=== PATIENT | male | born 1955 | race African-American/Black ===

== ENCOUNTER 2016-12-19 17:31 | Inpatient (IN) | payer OTHER, MEDICAID ==
[~2016-12-19] VITALS: Ht 182.9 cm; Wt 74.8 kg
[2016-12-19] MEDS ORDERED: ONDANSETRON HCL 4MG/2ML VIAL IV STA (18:15)
[2016-12-19] MEDS ORDERED: MORPHINE SULFATE 4 MG/ML CPJ (NOT FOR IM USE) IV STA (18:15)
[2016-12-19] MEDS ORDERED: SODIUM CHLORIDE 0.9% 1,000 ML IV ONE (18:15)
[2016-12-19 19:14] LABS: BASOPHILS % 0.4 % (0.0-2.0); HEMATOCRIT. 51.2 % (42.0-52.0); HEMOGLOBIN. 16.7 g/dL (14.0-18.0); LYMPHOCYTES % 17.6 % (20.0-50.0); MEAN CORPUSCULAR HEMOGLOBIN 24.5 pg (28.0-32.0); MEAN CORPUSCULAR VOLUME 75.2 fL (80.0-94.0); MEAN PLATELET VOLUME 8.3 fl (7.4-10.4); MONOCYTES % 13.3 % (2.0-8.0); NEUTROPHILS % 68.7 % (40.0-76.0); PLATELET 426 x1000/uL (130-400); RED BLOOD CELL COUNT 6.81 mill/uL (4.7-6.1)
[2016-12-19 19:21] LABS: INR 1.1; PROTHROMBIN TIME 11.8 sec (9.4-11.6)
[2016-12-19 19:25] LABS: CARBON DIOXIDE 30 mEq/L (21-32); CHLORIDE 93 mEq/L (98-107); ETHANOL BLOOD < 10 mg/dL
[2016-12-19 19:30] LABS: TROPONIN I 0.02 ng/mL (0.00-0.04)
[2016-12-19] MEDS ORDERED: MORPHINE SULFATE 2 MG/ML CPJ (NOT FOR IM USE) IV NR (19:45)
[2016-12-19] MEDS ORDERED: LEVOFLOXACIN 750MG PREMIX 150 ML IV ONE (21:15)
[2016-12-20] MEDS ORDERED: SODIUM CHLORIDE 0.9% 1,000 ML IV ONE (01:04)
[2016-12-20] MEDS ORDERED: MORPHINE SULFATE 4 MG/ML CPJ (NOT FOR IM USE) IV ONE (01:15)
[2016-12-20] MEDS ORDERED: ONDANSETRON HCL 4MG/2ML VIAL IV ONE (01:15)
[2016-12-20] MEDS ORDERED: MORPHINE SULFATE 2 MG/ML CPJ (NOT FOR IM USE) IV ONE (01:33)
[2016-12-20 04:00] VITALS: BP_SYST 138; BP_SYST 162; BP_DIAS 87; BP_DIAS 97
[2016-12-20 06:39] VITALS: BP 121/66
[2016-12-20 07:57] VITALS: BP 109/78
[2016-12-20] MEDS: AMLODIPINE 10MG TABLET PO SCH (09:00)
[2016-12-20 10:08] LABS: BASOPHILS % 0.6 % (0.0-2.0); EOSINOPHILS % 0.2 % (0.0-5.0); HEMATOCRIT. 45.5 % (42.0-52.0); HEMOGLOBIN. 14.6 g/dL (14.0-18.0); LYMPHOCYTES % 19.5 % (20.0-50.0); MEAN CORPUSCULAR HEMOGLOBIN 24.7 pg (28.0-32.0); MEAN CORPUSCULAR VOLUME 76.9 fL (80.0-94.0); MEAN PLATELET VOLUME 8.4 fl (7.4-10.4); NEUTROPHILS % 65.7 % (40.0-76.0); PLATELET 373 x1000/uL (130-400); RED BLOOD CELL COUNT 5.92 mill/uL (4.7-6.1); RED CELL DISTRIBUTION WIDTH 18.2 % (11.6-14.6)
[2016-12-20 10:28] LABS: TROPONIN I 0.03 ng/mL (0.00-0.04)
[2016-12-20 12:00] VITALS: BP 124/74
[2016-12-20] MEDS ORDERED: POTASSIUM CHLORIDE 20MEQ TABLET SR PO NR (15:00)
[2016-12-20] MEDS: DEXT 5%/0.9% NACL 1,000 ML IV SCH (15:21)
[2016-12-20 16:00] VITALS: BP 126/89
[2016-12-20] MEDS ORDERED: ONDANSETRON HCL 4MG/2ML VIAL IV PRN (18:30)
[2016-12-20] MEDS ORDERED: DEXTROSE 50% WATER 50ML SYRINGE IV PRN (18:45)
[2016-12-20 20:00] VITALS: BP 135/90
[2016-12-20 20:05] LABS: EOSINOPHILS % 0.3 % (0.0-5.0); HEMOGLOBIN. 14.8 g/dL (14.0-18.0); LYMPHOCYTES % 26.4 % (20.0-50.0); MEAN CORPUSCULAR VOLUME 77.3 fL (80.0-94.0); MEAN PLATELET VOLUME 8.6 fl (7.4-10.4); NEUTROPHILS % 59.3 % (40.0-76.0); PLATELET 374 x1000/uL (130-400); RED BLOOD CELL COUNT 5.95 mill/uL (4.7-6.1); RED CELL DISTRIBUTION WIDTH 18.4 % (11.6-14.6)
[2016-12-20 20:17] LABS: CARBON DIOXIDE 30 mEq/L (21-32); CHLORIDE 98 mEq/L (98-107)
[2016-12-20] MEDS: FAMOTIDINE 20MG/2ML VIAL IV SCH (20:19)
[2016-12-20] MEDS: BLOOD SUGAR DIAGNOSTIC STRIP TEST SCH (20:24)
[2016-12-20] MEDS: INSULIN LISPRO 100 UNITS/ML SUBCUT SCH ×2 (20:46→20:51)
[2016-12-21] VITALS (7 sets, daily range): BP systolic 121–150; BP diastolic 70–85
[2016-12-21] MEDS ORDERED: METOCLOPRAMIDE HCL 10MG/2ML VIAL IV SCH
[2016-12-21] MEDS: DEXT 5%/0.9% NACL 1,000 ML IV SCH ×2 (03:34→18:33)
[2016-12-21] MEDS: BLOOD SUGAR DIAGNOSTIC STRIP TEST SCH ×4 (05:44→21:25)
[2016-12-21] MEDS: INSULIN LISPRO 100 UNITS/ML SUBCUT SCH ×4 (06:41→21:00)
[2016-12-21 07:52] LABS: GLUCOSE URINE NEGATIVE (NEGATIVE); KETONES URINE 1+ (NEGATIVE); LEUKOCYTE ESTERASE URINE NEGATIVE (NEGATIVE); NITRITE URINE NEGATIVE (NEGATIVE); OCCULT BLOOD URINE NEGATIVE (NEGATIVE); PH URINE 7.5 (4.5-8.0); PROTEIN URINE 1+ (NEGATIVE); SPECIFIC GRAVITY URINE 1.028 (1.005-1.030)
[2016-12-21 08:00] LABS: CLARITY URINE CLEAR (CLEAR); COLOR URINE DARK YELLOW (YELLOW)
[2016-12-21] MEDS: AMLODIPINE 10MG TABLET PO SCH (08:15)
[2016-12-21] MEDS: MORPHINE SULFATE 2 MG/ML CPJ (NOT FOR IM USE) IV PRN ×2 (08:23→14:08)
[2016-12-21 08:25] LABS: *AMPHETAMINES SCREEN URINE NEGATIVE (NEGATIVE); *BARBITURATES SCREEN URINE NEGATIVE (NEGATIVE); *BENZODIAZEPINES SCREEN URINE NEGATIVE (NEGATIVE); *COCAINE SCREEN URINE PRESUMTIVE POSITIVE (NEGATIVE); CANNABINOID URINE SCREEN PRESUMTIVE POSITIVE (NEGATIVE); METHADONE URINE SCREEN NEGATIVE (NEGATIVE); OPIATES URINE SCREEN PRESUMTIVE POSITIVE (NEGATIVE); PHENCYCLIDINE URINE SCREEN NEGATIVE (NEGATIVE)
[2016-12-21 17:29] LABS: BASOPHILS % 0.7 % (0.0-2.0); HEMATOCRIT. 48.9 % (42.0-52.0); HEMOGLOBIN. 15.4 g/dL (14.0-18.0); LYMPHOCYTES % 33.9 % (20.0-50.0); MEAN CORPUSCULAR HEMOGLOBIN 24.6 pg (28.0-32.0); MEAN CORPUSCULAR VOLUME 77.9 fL (80.0-94.0); MEAN PLATELET VOLUME 9.5 fl (7.4-10.4); MONOCYTES % 12.8 % (2.0-8.0); NEUTROPHILS % 51.6 % (40.0-76.0); PLATELET 377 x1000/uL (130-400); RED BLOOD CELL COUNT 6.28 mill/uL (4.7-6.1); RED CELL DISTRIBUTION WIDTH 18.3 % (11.6-14.6)
[2016-12-21 17:41] LABS: CARBON DIOXIDE 28 mEq/L (21-32); CHLORIDE 102 mEq/L (98-107)
[2016-12-21] MEDS ORDERED: LORAZEPAM 2MG/ML CPJ IV NR (19:55)
[2016-12-21] MEDS: FAMOTIDINE 20MG/2ML VIAL IV SCH (20:09)
== END 2016-12-21 23:30 | disposition short-term general hospital (02) | DRG 682 ==
LOC: ER 19:31 → 8WST 12-20 00:03 → EDBEDREQ 12-20 00:05 → ENRESERV 12-20 00:10
PROVIDERS: ADMIT Family Medicine; ATTEND Family Medicine
DX: N17.9 Acute kidney failure, unspecified (principal); K85.90 Acute pancreatitis without necrosis or infection, unspecified; I10 Essential (primary) hypertension; E86.0 Dehydration; K52.9 Noninfective gastroenteritis and colitis, unspecified; E11.9 Type 2 diabetes mellitus without complications; F17.200 Nicotine dependence, unspecified, uncomplicated
CPT/HCPCS: 36415; 71010; 74176; 76700; 80048; 80053; 80061; 80305; 81001; 82962; 83690; 83880; 84484; 85025; 85610; 87015; 87040; 87045; 87427; 87449; 93005; 96361; 96365; 96375; 96376; 99285; G0482; J1956; J2060; J2270; J2405; J3490; J7030; J7042